=== PATIENT | male | born 1940 | race Caucasian/White ===

== ENCOUNTER → 2016-12-26 | Outpatient (REF) | payer MEDICARE, OTHER | END | disposition home or self-care (01) | LOC: M LAB REF 13:05 | PROVIDERS: ATTEND Internal Medicine Pulmonary Disease | DX: J45.40 Moderate persistent asthma, uncomplicated (principal) ==

== ENCOUNTER → 2018-06-30 | Outpatient (REF) | payer MEDICARE, OTHER ==
[2018-06-30 13:27] LABS: BASO # 0.1 10^3/uL (0.0-0.2); BASO % 1.2 % (0.0-1.0); EOS # 1.2 10^3/uL (0.0-0.50); EOS % 13.1 % (0.0-3.0); HEMATOCRIT 39.9 % (42.0-52.0); HEMOGLOBIN 12.9 g/dl (13.5-17.5); IMMATURE GRANULOCYTE % 0.4 % (0-3.0); LYMPH # 1.9 10^3/uL (1.5-4.5); LYMPH % 20.4 % (24.0-44.0); MEAN CORPUSCULAR HEMOGLOBIN 29.9 pg (27.0-33.0); MEAN CORPUSCULAR HGB CONC 32.3 g/dl (32.0-36.5); MEAN CORPUSCULAR VOLUME 92.4 fl (80.0-96.0); MONO # 0.8 10^3/uL (0.0-0.8); MONO % 7.9 % (0.0-5.0); NEUTROPHILS # 5.4 10^3/uL (1.8-7.7); PLATELET COUNT, AUTOMATED 336 10^3/uL (150-450); RED BLOOD COUNT 4.32 10^6/uL (4.30-6.10); RED CELL DISTRIBUTION WIDTH 13.8 % (11.5-14.5); WHITE BLOOD COUNT 9.5 10^3/uL (4.0-10.0)
[2018-07-03 00:07] LABS: D001-IgE D pteronyssinus <0.10 kU/L (Class 0); E001-IgE Cat Epith/Dander < 0.10 kU/L (Class 0); E005-IgE Dog Dander < 0.10 kU/L (Class 0); G002-IgE Bermuda Grass < 0.10 kU/L (Class 0); G008-IgE Kentucky Bluegrass < 0.10 kU/L (Class 0); M001-IgE Penicillium chrysogen < 0.10 kU/L (Class 0); M002 IgE Cladosporium herbaru < 0.10 kU/L (Class 0); M003 IgE Aspergillus fumigatu < 0.10 kU/L (Class 0); M006-IgE Alternaria alternata < 0.10 kU/L (Class 0); T001-IgE Maple/Box Elder < 0.10 kU/L (Class 0); T003-IgE Common Silver Birch < 0.10 kU/L (Class 0); T006-IgE Cedar, Mountain < 0.10 kU/L (Class 0); T007-IgE Oak, White < 0.10 kU/L (Class 0); T008-IgE Elm, American < 0.10 kU/L (Class 0); T015-IgE Ash, White < 0.10 kU/L (Class 0); T041-IgE Hickory, White < 0.10 kU/L (Class 0); T070-IgE White Mulberry < 0.10 kU/L (Class 0); W009-IgE Plantain, English < 0.10 kU/L (Class 0); W014-IgE Pigweed, Rough < 0.10 kU/L (Class 0); W018-IgE Sheep Sorrel < 0.10 kU/L (Class 0)
== END ==
LOC: M LAB REF 13:10
DX: J45.50 Severe persistent asthma, uncomplicated (principal)
CPT/HCPCS: 82785

== ENCOUNTER 2018-08-11 11:06 | Outpatient (CLI) | payer MEDICARE, BC, OTHER ==
[2018-08-11] MEDS: [UNRECOGNIZED DRUG - OTHER] SC (11:38)
== END 2018-08-11 12:00 | disposition home or self-care (01) ==
LOC: M INFU 11:06
DX: J45.50 Severe persistent asthma, uncomplicated (principal); Z88.8 Allergy status to other drugs, medicaments and biological substances; Z79.52 Long term (current) use of systemic steroids; Z79.899 Other long term (current) drug therapy
CPT/HCPCS: C9466

== ENCOUNTER 2018-09-08 11:33 | Outpatient (CLI) | payer MEDICARE, BC, OTHER ==
[2018-09-08] MEDS: [UNRECOGNIZED DRUG - OTHER] SC (11:57)
== END 2018-09-08 12:20 | disposition home or self-care (01) ==
LOC: M INFU 11:33
DX: J45.50 Severe persistent asthma, uncomplicated (principal); Z79.899 Other long term (current) drug therapy
CPT/HCPCS: C9466

== ENCOUNTER 2018-10-06 10:56 | Outpatient (CLI) | payer MEDICARE, BC, OTHER ==
[2018-10-06] MEDS: [UNRECOGNIZED DRUG - OTHER] SC (11:52)
== END 2018-10-06 12:15 | disposition home or self-care (01) ==
LOC: M INFU 10:56
DX: J45.50 Severe persistent asthma, uncomplicated (principal)
CPT/HCPCS: C9466

== ENCOUNTER 2018-12-01 10:58 | Outpatient (CLI) | payer MEDICARE, BC, OTHER ==
[~2018-12-01] VITALS: Ht 171.4 cm; Wt 71.7 kg
[2018-12-01 11:00] VITALS: BP 152/75
[2018-12-01 12:00] VITALS: BP 131/74
[2018-12-01] MEDS ORDERED: BENRALIZUMAB (FASENRA) 30MG/ML SYRINGE (J0517 PER 1MG) SC ONE (12:00)
== END 2018-12-01 12:00 | disposition home or self-care (01) ==
LOC: M INFU 10:58
PROVIDERS: ATTEND Internal Medicine Pulmonary Disease
DX: J45.50 Severe persistent asthma, uncomplicated (principal); Z88.8 Allergy status to other drugs, medicaments and biological substances
CPT/HCPCS: 96372; J0517

== ENCOUNTER 2019-01-26 10:50 | Outpatient (CLI) | payer MEDICARE, BC, OTHER ==
[~2019-01-26] VITALS: Ht 171.4 cm; Wt 71.8 kg
[2019-01-26] MEDS ORDERED: BENRALIZUMAB (FASENRA) 30MG/ML SYRINGE (J0517 PER 1MG) SC ONE (11:00)
[2019-01-26 11:07] VITALS: BP 164/71
[2019-01-26 11:50] VITALS: BP 136/66
== END 2019-01-26 11:50 | disposition home or self-care (01) ==
LOC: M INFU 10:50
PROVIDERS: ATTEND Internal Medicine Pulmonary Disease
DX: J45.50 Severe persistent asthma, uncomplicated (principal); Z79.899 Other long term (current) drug therapy; Z88.8 Allergy status to other drugs, medicaments and biological substances
CPT/HCPCS: 96372; J0517

== ENCOUNTER 2019-03-23 11:23 | Outpatient (CLI) | payer MEDICARE, BC, OTHER ==
[~2019-03-23] VITALS: Ht 171.4 cm; Wt 71.8 kg
[2019-03-23 11:30] VITALS: BP 147/72
[2019-03-23] MEDS ORDERED: BENRALIZUMAB (FASENRA) 30MG/ML SYRINGE (J0517 PER 1MG) SC ONE (12:00)
[2019-03-23 12:10] VITALS: BP 161/73
[2019-03-23 12:20] VITALS: BP 148/70
== END 2019-03-23 12:20 | disposition home or self-care (01) ==
LOC: M INFU 11:23
PROVIDERS: ATTEND Internal Medicine Pulmonary Disease
DX: J45.50 Severe persistent asthma, uncomplicated (principal); Z88.6 Allergy status to analgesic agent; Z88.8 Allergy status to other drugs, medicaments and biological substances; Z79.899 Other long term (current) drug therapy; Z79.4 Long term (current) use of insulin
CPT/HCPCS: 96372; J0517

== ENCOUNTER 2019-11-29 09:45 | Outpatient (CLI) | payer MEDICARE, BC, OTHER ==
[~2019-11-29] VITALS: Ht 171.4 cm; Wt 74.5 kg
[2019-11-29 09:45] VITALS: BP 154/72
[2019-11-29] MEDS ORDERED: TOUJ300I2 SC (10:08)
[2019-11-29] MEDS ORDERED: METF500T13 PO (10:08)
[2019-11-29] MEDS ORDERED: ROSU40TA4 PO (10:09)
[2019-11-29] MEDS ORDERED: OMEP40CA97 PO (10:09)
[2019-11-29] MEDS ORDERED: VITA500T40 PO (10:10)
[2019-11-29] MEDS ORDERED: FOSI10TA4 PO (10:11)
[2019-11-29] MEDS ORDERED: VITA100T59 PO (10:14)
[2019-11-29] MEDS ORDERED: PRED5TA PO (10:14)
[2019-11-29] MEDS ORDERED: MULTCAP PO (10:14)
[2019-11-29] MEDS ORDERED: IRON65TA2 PO (10:14)
[2019-11-29] MEDS ORDERED: SING4CHW9 PO (10:14)
[2019-11-29] MEDS ORDERED: SPIR12.9 INH (10:14)
[2019-11-29] MEDS ORDERED: BREO1INH3 PO (10:16)
[2019-11-29] MEDS ORDERED: CALC-190 PO (10:16)
[2019-11-29] MEDS ORDERED: BUDE180INH INH (10:16)
[2019-11-29] MEDS ORDERED: COMBAER6 INH (10:16)
[2019-11-29 10:29] VITALS: BP 153/67
[2019-11-29] MEDS ORDERED: BENRALIZUMAB (FASENRA) 30MG/ML SYRINGE (J0517 PER 1MG) SC ONE (10:30)
== END 2019-11-29 10:30 | disposition home or self-care (01) ==
LOC: M INFU 09:45
PROVIDERS: ATTEND Internal Medicine Pulmonary Disease
DX: J45.50 Severe persistent asthma, uncomplicated (principal)
CPT/HCPCS: 96372; J0517

== ENCOUNTER 2019-12-26 07:34 | Outpatient (CLI) | payer MEDICARE, BC, OTHER ==
[~2019-12-26] VITALS: Ht 172.7 cm; Wt 74.5 kg
[~2019-12-26 07:34] MED LIST: BREO1INH3 PO; BUDE180INH INH; CALC-190 PO; COMBAER6 INH; FOSI10TA4 PO; IRON65TA2 PO; METF500T13 PO; MULTCAP PO; OMEP40CA97 PO; PRED5TA PO; ROSU40TA4 PO; SING4CHW9 PO; SPIR12.9 INH; TOUJ300I2 SC; VITA100T59 PO; VITA500T40 PO
[2019-12-26 07:43] VITALS: BP 162/69
[2019-12-26] MEDS ORDERED: BENRALIZUMAB (FASENRA) 30MG/ML SYRINGE (J0517 PER 1MG) SC ONE (08:00)
[2019-12-26 08:10] VITALS: BP 152/68
== END 2019-12-26 08:10 | disposition home or self-care (01) ==
LOC: M INFU 07:34
PROVIDERS: ATTEND Internal Medicine Pulmonary Disease
DX: J45.50 Severe persistent asthma, uncomplicated (principal); Z88.6 Allergy status to analgesic agent
CPT/HCPCS: 96372; J0517

== ENCOUNTER 2020-01-23 08:22 | Outpatient (CLI) | payer MEDICARE, BC, OTHER ==
[~2020-01-23] VITALS: Ht 171.4 cm; Wt 74.5 kg
[2020-01-23 08:30] VITALS: BP 145/67
[2020-01-23] MEDS ORDERED: BENRALIZUMAB (FASENRA) 30MG/ML SYRINGE (J0517 PER 1MG) SC ONE (09:00)
[2020-01-23 09:10] VITALS: BP 149/69
[2020-01-23] MEDS ORDERED: TRAD5TAB PO (10:05)
== END 2020-01-23 09:10 | disposition home or self-care (01) ==
LOC: M INFU 08:22
PROVIDERS: ATTEND Internal Medicine Pulmonary Disease
DX: J45.50 Severe persistent asthma, uncomplicated (principal); Z88.6 Allergy status to analgesic agent; Z88.8 Allergy status to other drugs, medicaments and biological substances
CPT/HCPCS: 96372; J0517

== ENCOUNTER 2020-03-19 08:10 | Outpatient (CLI) | payer MEDICARE, BC, OTHER ==
[~2020-03-19] VITALS: Ht 170.2 cm; Wt 74.5 kg
[~2020-03-19 08:10] MED LIST changes: +TRAD5TAB PO
[2020-03-19 08:15] VITALS: BP 152/68
[2020-03-19] MEDS ORDERED: BENRALIZUMAB (FASENRA) 30MG/ML SYRINGE (J0517 PER 1MG) SC ONE (08:30)
[2020-03-19 09:00] VITALS: BP 138/63
== END 2020-03-19 09:00 | disposition home or self-care (01) ==
LOC: M INFU 08:10
PROVIDERS: ATTEND Internal Medicine Pulmonary Disease
DX: J45.50 Severe persistent asthma, uncomplicated (principal); Z79.84 Long term (current) use of oral hypoglycemic drugs; Z79.899 Other long term (current) drug therapy; Z88.6 Allergy status to analgesic agent; Z88.8 Allergy status to other drugs, medicaments and biological substances
CPT/HCPCS: 96372; J0517

== ENCOUNTER 2020-05-14 08:41 | Outpatient (CLI) | payer MEDICARE, BC, OTHER ==
[~2020-05-14] VITALS: Ht 171.4 cm; Wt 74.4 kg
[2020-05-14 08:45] VITALS: BP 141/63
[2020-05-14] MEDS ORDERED: BENRALIZUMAB (FASENRA) 30MG/ML SYRINGE (J0517 PER 1MG) SC ONE (09:00)
[2020-05-14 09:40] VITALS: BP 146/63
== END 2020-05-14 09:40 | disposition home or self-care (01) ==
LOC: M INFU 08:41
PROVIDERS: ATTEND Internal Medicine Pulmonary Disease
DX: J45.50 Severe persistent asthma, uncomplicated (principal); Z79.4 Long term (current) use of insulin; Z79.899 Other long term (current) drug therapy; Z88.8 Allergy status to other drugs, medicaments and biological substances
CPT/HCPCS: 96372; J0517

== ENCOUNTER 2020-07-10 09:21 | Outpatient (CLI) | payer MEDICARE, BC, OTHER ==
[~2020-07-10] VITALS: Ht 172.7 cm; Wt 70.3 kg
[2020-07-10] MEDS ORDERED: BENRALIZUMAB (FASENRA) 30MG/ML SYRINGE (J0517 PER 1MG) SC ONE (09:30)
[2020-07-10 10:21] VITALS: BP 132/61
== END 2020-07-10 10:05 | disposition home or self-care (01) ==
LOC: M INFU 09:21
PROVIDERS: ATTEND Internal Medicine Pulmonary Disease
DX: J45.50 Severe persistent asthma, uncomplicated (principal)
CPT/HCPCS: 96372; J0517

== ENCOUNTER 2020-09-04 09:38 | Outpatient (CLI) | payer MEDICARE, BC, OTHER ==
[~2020-09-04] VITALS: Ht 172.7 cm; Wt 70.3 kg
[2020-09-04 09:46] VITALS: BP 139/69
[2020-09-04] MEDS ORDERED: BENRALIZUMAB (FASENRA) 30MG/ML SYRINGE (J0517 PER 1MG) SC ONE (10:00)
[2020-09-04 10:01] VITALS: BP 141/73
[2020-09-04] MEDS ORDERED: FASE30IN SC (10:05)
== END 2020-09-04 10:00 | disposition home or self-care (01) ==
LOC: M INFU 09:38
PROVIDERS: ATTEND Internal Medicine Pulmonary Disease
DX: J45.50 Severe persistent asthma, uncomplicated (principal)
CPT/HCPCS: 96372; J0517

== ENCOUNTER 2020-10-30 09:39 | Outpatient (CLI) | payer MEDICARE, BC, OTHER ==
[~2020-10-30] VITALS: Ht 170.2 cm; Wt 70.3 kg
[~2020-10-30 09:39] MED LIST changes: +FASE30IN SC
[2020-10-30 09:51] VITALS: BP 145/74
[2020-10-30] MEDS ORDERED: BENRALIZUMAB (FASENRA) 30MG/ML SYRINGE (J0517 PER 1MG) SC ONE (10:00)
== END 2020-10-30 10:00 | disposition home or self-care (01) ==
LOC: M INFU 09:39
PROVIDERS: ATTEND Internal Medicine Pulmonary Disease
DX: J45.50 Severe persistent asthma, uncomplicated (principal); Z88.8 Allergy status to other drugs, medicaments and biological substances
CPT/HCPCS: 96372; J0517

== ENCOUNTER 2020-12-25 09:28 | Outpatient (CLI) | payer MEDICARE, BC, OTHER ==
[~2020-12-25] VITALS: Ht 170.2 cm; Wt 70.3 kg
[2020-12-25 09:43] VITALS: BP 166/74
[2020-12-25] MEDS ORDERED: BENRALIZUMAB (FASENRA) 30MG/ML SYRINGE (J0517 PER 1MG) SC ONE (10:00)
== END 2020-12-25 09:55 | disposition home or self-care (01) ==
LOC: M INFU 09:28
PROVIDERS: ATTEND Internal Medicine Pulmonary Disease
DX: J45.50 Severe persistent asthma, uncomplicated (principal)
CPT/HCPCS: 96372; J0517

== ENCOUNTER 2021-02-19 09:43 | Outpatient (CLI) | payer MEDICARE, BC, OTHER ==
[~2021-02-19] VITALS: Ht 172.7 cm; Wt 72.7 kg
[2021-02-19] MEDS ORDERED: BENRALIZUMAB 30 MG/ML SC ONE (10:00)
[2021-02-19 10:16] VITALS: BP 127/69
== END 2021-02-19 10:15 | disposition home or self-care (01) ==
LOC: M INFU 09:43
PROVIDERS: ATTEND Internal Medicine Pulmonary Disease
DX: J45.30 Mild persistent asthma, uncomplicated (principal); Z88.8 Allergy status to other drugs, medicaments and biological substances; Z88.6 Allergy status to analgesic agent
CPT/HCPCS: 96372; J0517

== ENCOUNTER 2021-04-16 09:47 | Outpatient (CLI) | payer MEDICARE, BC, OTHER ==
[~2021-04-16] VITALS: Ht 171.4 cm; Wt 72.1 kg
[2021-04-16] MEDS ORDERED: BENRALIZUMAB 30 MG/ML SC ONE (10:00)
[2021-04-16 10:04] VITALS: BP 160/70
== END 2021-04-16 10:05 | disposition home or self-care (01) ==
LOC: M INFU 09:47
PROVIDERS: ATTEND Internal Medicine Pulmonary Disease
DX: J45.30 Mild persistent asthma, uncomplicated (principal); Z88.8 Allergy status to other drugs, medicaments and biological substances
CPT/HCPCS: 96372; J0517

== ENCOUNTER 2021-06-11 09:31 | Outpatient (CLI) | payer MEDICARE, BC, OTHER ==
[~2021-06-11] VITALS: Ht 170.2 cm; Wt 79.5 kg
[~2021-06-11 09:31] MED LIST changes: +BENRALIZUMAB 30 MG/ML SC ONE; +OMEP40CA4 PO; -OMEP40CA97 PO
[2021-06-11 09:48] VITALS: BP 182/78
[2021-06-11 09:50] VITALS: BP 156/78
== END 2021-06-11 09:50 | disposition home or self-care (01) ==
LOC: M INFU 09:31
PROVIDERS: ATTEND Internal Medicine Pulmonary Disease
DX: J45.30 Mild persistent asthma, uncomplicated (principal); Z88.6 Allergy status to analgesic agent
CPT/HCPCS: 96372; J0517

== ENCOUNTER 2021-08-09 11:24 | Outpatient (CLI) | payer MEDICARE, BC, OTHER ==
[~2021-08-09] VITALS: Ht 170.2 cm; Wt 79.5 kg
[~2021-08-09 11:24] MED LIST changes: -BENRALIZUMAB 30 MG/ML SC ONE
[2021-08-09 11:30] VITALS: BP 158/76
[2021-08-09] MEDS ORDERED: BENRALIZUMAB 30 MG/ML SC ONE ×2 (11:30)
== END 2021-08-09 11:45 | disposition home or self-care (01) ==
LOC: M INFU 11:24
PROVIDERS: ATTEND Internal Medicine Pulmonary Disease
DX: J45.50 Severe persistent asthma, uncomplicated (principal); Z88.6 Allergy status to analgesic agent; Z88.8 Allergy status to other drugs, medicaments and biological substances
CPT/HCPCS: 96372; J0517

== ENCOUNTER 2021-10-08 09:45 | Outpatient (CLI) | payer MEDICARE, BC, OTHER ==
[~2021-10-08] VITALS: Ht 170.2 cm; Wt 79.5 kg
[2021-10-08 09:55] VITALS: BP 174/72
[2021-10-08] MEDS ORDERED: BENRALIZUMAB 30 MG/ML SC ONE (10:00)
== END 2021-10-08 10:05 | disposition home or self-care (01) ==
LOC: M INFU 09:45
PROVIDERS: ATTEND Internal Medicine Pulmonary Disease
DX: J45.50 Severe persistent asthma, uncomplicated (principal); Z88.6 Allergy status to analgesic agent; Z88.8 Allergy status to other drugs, medicaments and biological substances
CPT/HCPCS: 96372; J0517

== ENCOUNTER 2021-12-03 10:02 | Outpatient (CLI) | payer MEDICARE, BC, OTHER ==
[~2021-12-03] VITALS: Ht 170.2 cm; Wt 79.5 kg
[2021-12-03 10:00] VITALS: BP 167/79
[~2021-12-03 10:02] MED LIST changes: +BENRALIZUMAB 30 MG/ML SC ONE; -FOSI10TA4 PO; +FOSI10TA44 PO
== END 2021-12-03 10:15 | disposition home or self-care (01) ==
LOC: M INFU 10:02
PROVIDERS: ATTEND Internal Medicine Pulmonary Disease
DX: J45.50 Severe persistent asthma, uncomplicated (principal); Z88.6 Allergy status to analgesic agent; Z88.8 Allergy status to other drugs, medicaments and biological substances
CPT/HCPCS: 96372; J0517

== ENCOUNTER 2022-01-28 09:43 | Outpatient (CLI) | payer MEDICARE, BC, OTHER ==
[~2022-01-28] VITALS: Ht 172.7 cm; Wt 70.0 kg
[~2022-01-28 09:43] MED LIST changes: -BENRALIZUMAB 30 MG/ML SC ONE
[2022-01-28 10:00] VITALS: BP 173/75
[2022-01-28] MEDS ORDERED: BENRALIZUMAB 30 MG/ML SC ONE (10:00)
== END 2022-01-28 10:15 | disposition home or self-care (01) ==
LOC: M INFU 09:43
PROVIDERS: ATTEND Internal Medicine Pulmonary Disease
DX: J45.50 Severe persistent asthma, uncomplicated (principal); Z88.6 Allergy status to analgesic agent; Z88.8 Allergy status to other drugs, medicaments and biological substances
CPT/HCPCS: 96372; J0517

== ENCOUNTER 2022-03-25 10:01 | Outpatient (CLI) | payer MEDICARE, BC, OTHER ==
[~2022-03-25 10:01] MED LIST changes: +BENRALIZUMAB 30 MG/ML SC ONE
[2022-03-25 10:15] VITALS: BP 159/69
== END 2022-03-25 10:17 | disposition home or self-care (01) ==
LOC: M INFU 10:01
PROVIDERS: ATTEND Internal Medicine Pulmonary Disease
DX: J47.9 Bronchiectasis, uncomplicated (principal); J45.40 Moderate persistent asthma, uncomplicated; Z88.6 Allergy status to analgesic agent; Z88.8 Allergy status to other drugs, medicaments and biological substances
CPT/HCPCS: 96372; J0517

== ENCOUNTER 2022-05-21 09:26 | Outpatient (CLI) | payer MEDICARE, BC, OTHER ==
[~2022-05-21] VITALS: Ht 170.2 cm; Wt 72.7 kg
[~2022-05-21 09:26] MED LIST changes: -BENRALIZUMAB 30 MG/ML SC ONE
[2022-05-21 09:30] VITALS: BP 181/77
[2022-05-21 10:00] VITALS: BP 183/82
[2022-05-21] MEDS ORDERED: BENRALIZUMAB 30 MG/ML SC ONE (10:00)
== END 2022-05-21 10:00 ==
LOC: M INFU 09:26
PROVIDERS: ATTEND Internal Medicine Pulmonary Disease
DX: J45.50 Severe persistent asthma, uncomplicated (principal); Z88.8 Allergy status to other drugs, medicaments and biological substances
CPT/HCPCS: 96372; J0517

== ENCOUNTER 2022-07-15 09:50 | Outpatient (CLI) | payer MEDICARE, BC, OTHER ==
[~2022-07-15] VITALS: Ht 172.7 cm; Wt 73.0 kg
[2022-07-15 09:55] VITALS: BP 150/67
[2022-07-15] MEDS ORDERED: BENRALIZUMAB 30 MG/ML SC ONE (10:00)
== END 2022-07-15 10:20 | disposition home or self-care (01) ==
LOC: M INFU 09:50
PROVIDERS: ATTEND Internal Medicine Pulmonary Disease
DX: J45.40 Moderate persistent asthma, uncomplicated (principal); J47.9 Bronchiectasis, uncomplicated; Z88.8 Allergy status to other drugs, medicaments and biological substances
CPT/HCPCS: 96372; J0517

== ENCOUNTER 2022-09-09 10:00 | Outpatient (CLI) | payer MEDICARE, BC, OTHER ==
[~2022-09-09 10:00] MED LIST changes: +BENRALIZUMAB 30 MG/ML SC ONE
== END 2022-09-09 10:30 | disposition home or self-care (01) ==
LOC: M INFU 10:00
PROVIDERS: ATTEND Internal Medicine Pulmonary Disease
DX: J45.40 Moderate persistent asthma, uncomplicated (principal); Z88.8 Allergy status to other drugs, medicaments and biological substances
CPT/HCPCS: 96372; J0517

== ENCOUNTER 2022-11-04 09:40 | Outpatient (CLI) | payer MEDICARE, BC, OTHER ==
[~2022-11-04] VITALS: Ht 172.7 cm; Wt 73.0 kg
[2022-11-04 09:40] VITALS: BP 123/75
[~2022-11-04 09:40] MED LIST changes: -BENRALIZUMAB 30 MG/ML SC ONE
[2022-11-04] MEDS ORDERED: BENRALIZUMAB 30 MG/ML SC ONE (10:00)
== END 2022-11-04 09:50 | disposition home or self-care (01) ==
LOC: M INFU 09:40
PROVIDERS: ATTEND Internal Medicine Pulmonary Disease
DX: J45.40 Moderate persistent asthma, uncomplicated (principal); Z88.8 Allergy status to other drugs, medicaments and biological substances
CPT/HCPCS: 96372; J0517

== ENCOUNTER 2022-12-30 09:59 | Outpatient (CLI) | payer MEDICARE, BC, OTHER ==
[~2022-12-30] VITALS: Ht 172.7 cm; Wt 73.2 kg
[2022-12-30] MEDS ORDERED: BENRALIZUMAB 30 MG/ML SC ONE (10:00)
[2022-12-30 10:05] VITALS: BP 166/78
[2022-12-30 10:40] VITALS: BP 159/71
== END 2022-12-30 10:40 | disposition home or self-care (01) ==
LOC: M INFU 09:59
PROVIDERS: ATTEND Internal Medicine Pulmonary Disease
DX: J45.40 Moderate persistent asthma, uncomplicated (principal); Z88.8 Allergy status to other drugs, medicaments and biological substances
CPT/HCPCS: 96372; J0517

== ENCOUNTER 2023-02-24 09:45 | Outpatient (CLI) | payer MEDICARE, BC, OTHER ==
[~2023-02-24] VITALS: Ht 172.7 cm; Wt 71.2 kg
[~2023-02-24 09:45] MED LIST changes: +MONT4TAB2 PO; -SING4CHW9 PO
[2023-02-24 09:51] VITALS: BP 164/73
[2023-02-24] MEDS ORDERED: BENRALIZUMAB 30 MG/ML SC ONE (10:00)
== END 2023-02-24 10:00 | disposition home or self-care (01) ==
LOC: M INFU 09:45
PROVIDERS: ATTEND Internal Medicine Pulmonary Disease
DX: J45.40 Moderate persistent asthma, uncomplicated (principal); Z88.8 Allergy status to other drugs, medicaments and biological substances
CPT/HCPCS: 96372; J0517

== ENCOUNTER 2023-04-21 10:05 | Outpatient (CLI) | payer MEDICARE, BC, OTHER ==
[~2023-04-21] VITALS: Ht 171.4 cm; Wt 71.7 kg
[~2023-04-21 10:05] MED LIST changes: +BENRALIZUMAB 30 MG/ML SC ONE
[2023-04-21 10:18] VITALS: BP 168/67; O2SAT 97
== END 2023-04-21 10:20 | disposition home or self-care (01) ==
LOC: M INFU 10:05
PROVIDERS: ATTEND Internal Medicine Pulmonary Disease
DX: J45.40 Moderate persistent asthma, uncomplicated (principal); Z88.8 Allergy status to other drugs, medicaments and biological substances
CPT/HCPCS: 96372; J0517

== ENCOUNTER 2023-06-18 11:59 | Outpatient (CLI) | payer MEDICARE, BC, OTHER ==
[~2023-06-18 11:59] MED LIST changes: -BENRALIZUMAB 30 MG/ML SC ONE
[2023-06-18 12:21] VITALS: BP 143/69; O2SAT 99
[2023-06-18] MEDS ORDERED: BENRALIZUMAB 30 MG/ML SC ONE (13:00)
== END 2023-06-18 12:34 | disposition home or self-care (01) ==
LOC: M INFU 11:59
PROVIDERS: ATTEND Internal Medicine Pulmonary Disease
DX: J45.50 Severe persistent asthma, uncomplicated (principal); Z88.8 Allergy status to other drugs, medicaments and biological substances
CPT/HCPCS: 96372; J0517

== ENCOUNTER 2023-10-06 09:45 | Outpatient (CLI) | payer MEDICARE, BC, OTHER ==
[~2023-10-06] VITALS: Ht 172.7 cm; Wt 70.0 kg
[2023-10-06 09:51] VITALS: BP 164/90; O2SAT 98
[2023-10-06] MEDS ORDERED: BENRALIZUMAB 30 MG/ML SC ONE (10:00)
== END 2023-10-06 10:00 ==
LOC: M INFU 09:45
PROVIDERS: ATTEND Internal Medicine Pulmonary Disease
DX: J45.50 Severe persistent asthma, uncomplicated (principal); Z88.8 Allergy status to other drugs, medicaments and biological substances
CPT/HCPCS: 96372; J0517

== ENCOUNTER 2023-12-01 09:43 | Outpatient (CLI) | payer MEDICARE, BC, OTHER ==
[2023-12-01] MEDS ORDERED: BENRALIZUMAB 30 MG/ML SC ONE (10:00)
[2023-12-01 10:03] VITALS: BP 152/67; O2SAT 98
== END 2023-12-01 10:13 | disposition home or self-care (01) ==
LOC: M INFU 09:43
PROVIDERS: ATTEND Internal Medicine Pulmonary Disease
DX: J45.50 Severe persistent asthma, uncomplicated (principal); Z88.8 Allergy status to other drugs, medicaments and biological substances
CPT/HCPCS: 96372; J0517

== ENCOUNTER 2024-01-26 09:45 | Outpatient (CLI) | payer MEDICARE, BC ==
[~2024-01-26] VITALS: Ht 172.7 cm; Wt 71.3 kg
[2024-01-26 09:45] VITALS: BP 146/70; O2SAT 96
[2024-01-26] MEDS: BENRALIZUMAB 30 MG/ML SC ONE (10:04)
== END 2024-01-26 10:05 | disposition home or self-care (01) ==
LOC: M INFU 09:45
PROVIDERS: ATTEND Internal Medicine Pulmonary Disease
DX: J45.50 Severe persistent asthma, uncomplicated (principal); Z88.8 Allergy status to other drugs, medicaments and biological substances
CPT/HCPCS: 96372; J0517

== ENCOUNTER 2024-03-22 10:10 | Outpatient (CLI) | payer MEDICARE, BC ==
[~2024-03-22] VITALS: Ht 170.2 cm; Wt 72.7 kg
[~2024-03-22 10:10] MED LIST changes: -ROSU40TA4 PO; +ROSU40TA63 PO
[2024-03-22] MEDS: BENRALIZUMAB 30 MG/ML SC ONE (10:16)
[2024-03-22 10:27] VITALS: BP 134/60; O2SAT 94
== END 2024-03-22 10:20 | disposition home or self-care (01) ==
LOC: M INFU 10:10
PROVIDERS: ATTEND Internal Medicine Pulmonary Disease
DX: J45.50 Severe persistent asthma, uncomplicated (principal); Z88.8 Allergy status to other drugs, medicaments and biological substances
CPT/HCPCS: 96372; J0517

== ENCOUNTER 2024-05-17 09:48 | Outpatient (CLI) | payer MEDICARE, BC ==
[~2024-05-17] VITALS: Ht 172.7 cm; Wt 72.7 kg
[2024-05-17] MEDS: BENRALIZUMAB 30 MG/ML SC ONE (10:17)
[2024-05-17 10:20] VITALS: BP 169/74; O2SAT 95
== END 2024-05-17 10:30 ==
LOC: M INFU 09:48
PROVIDERS: ATTEND Internal Medicine Pulmonary Disease
DX: J45.50 Severe persistent asthma, uncomplicated (principal); Z88.8 Allergy status to other drugs, medicaments and biological substances
CPT/HCPCS: 96372; J0517

== ENCOUNTER 2024-07-12 10:25 | Outpatient (CLI) | payer MEDICARE, BC ==
[2024-07-12 10:25] VITALS: BP 154/69; O2SAT 98
[2024-07-12] MEDS: BENRALIZUMAB 30 MG/ML SC ONE (10:35)
== END 2024-07-12 10:40 ==
LOC: M INFU 10:25
PROVIDERS: ATTEND Internal Medicine Pulmonary Disease
DX: J45.50 Severe persistent asthma, uncomplicated (principal); Z88.8 Allergy status to other drugs, medicaments and biological substances
CPT/HCPCS: 96372; J0517

== ENCOUNTER 2024-09-06 10:30 | Outpatient (CLI) | payer MEDICARE, BC ==
[~2024-09-06] VITALS: Ht 172.7 cm; Wt 73.2 kg
[2024-09-06 10:25] VITALS: BP 131/67; O2SAT 98
[~2024-09-06 10:30] MED LIST changes: +BENRALIZUMAB 30 MG/ML SC ONE; -ROSU40TA63 PO; +ROSU40TA81 PO
[2024-09-06] MEDS: BENRALIZUMAB 30 MG/ML SC ONE (10:41)
== END 2024-09-06 10:43 ==
LOC: M INFU 10:30
PROVIDERS: ATTEND Internal Medicine Pulmonary Disease
DX: J45.50 Severe persistent asthma, uncomplicated (principal); Z88.8 Allergy status to other drugs, medicaments and biological substances
CPT/HCPCS: 94010; 96372; G0463; J0517

== ENCOUNTER 2024-11-01 10:23 | Outpatient (CLI) | payer MEDICARE, BC ==
[~2024-11-01 10:23] MED LIST changes: -BENRALIZUMAB 30 MG/ML SC ONE; +BUDE180A2 INH; -BUDE180INH INH
[2024-11-01 10:35] VITALS: BP 145/81; O2SAT 97
[2024-11-01] MEDS: BENRALIZUMAB 30 MG/ML SC ONE (10:37)
== END 2024-11-01 10:44 ==
LOC: M INFU 10:23
PROVIDERS: ATTEND Internal Medicine Pulmonary Disease
DX: J45.50 Severe persistent asthma, uncomplicated (principal)
CPT/HCPCS: 96372; J0517

== ENCOUNTER 2024-12-27 09:56 | Outpatient (CLI) | payer MEDICARE, BC ==
[2024-12-27 10:15] VITALS: BP 153/78; O2SAT 97
[2024-12-27] MEDS: BENRALIZUMAB 30 MG/ML SC ONE (10:15)
== END 2024-12-27 10:25 ==
LOC: M INFU 09:56
PROVIDERS: ATTEND Internal Medicine Pulmonary Disease
DX: J45.50 Severe persistent asthma, uncomplicated (principal); Z88.8 Allergy status to other drugs, medicaments and biological substances
CPT/HCPCS: 96372; J0571

== ENCOUNTER 2025-02-21 09:45 | Outpatient (CLI) | payer MEDICARE, BC ==
[2025-02-21 09:45] VITALS: BP 161/72; O2SAT 97
[2025-02-21] MEDS: BENRALIZUMAB 30 MG/ML SC ONE (09:49)
== END 2025-02-21 09:53 ==
LOC: M INFU 09:45
PROVIDERS: ATTEND Internal Medicine Pulmonary Disease
DX: J45.50 Severe persistent asthma, uncomplicated (principal); Z88.6 Allergy status to analgesic agent; Z88.8 Allergy status to other drugs, medicaments and biological substances
CPT/HCPCS: 96372; J0517

== ENCOUNTER 2025-06-13 09:22 | Outpatient (CLI) | payer MEDICARE, BC ==
[~2025-06-13] VITALS: Ht 172.7 cm; Wt 72.8 kg
[2025-06-13 09:35] VITALS: BP 154/78; O2SAT 97
[2025-06-13] MEDS: BENRALIZUMAB 30 MG/ML SYRINGE SC ONE (09:39)
== END 2025-06-13 09:45 ==
LOC: M INFU 09:22
PROVIDERS: ATTEND Internal Medicine Pulmonary Disease
DX: J45.50 Severe persistent asthma, uncomplicated (principal); Z88.8 Allergy status to other drugs, medicaments and biological substances
CPT/HCPCS: 96372; J0517

== ENCOUNTER 2025-10-03 09:56 | Outpatient (CLI) | payer MEDICARE, BC ==
[2025-10-03 10:15] VITALS: BP 150/80; O2SAT 99
[2025-10-03] MEDS: BENRALIZUMAB 30 MG/ML SYRINGE SC ONE (10:18)
== END 2025-10-03 10:25 | disposition home or self-care (01) ==
LOC: M INFU 09:56
PROVIDERS: ATTEND Internal Medicine Pulmonary Disease
DX: J45.50 Severe persistent asthma, uncomplicated (principal); Z88.6 Allergy status to analgesic agent; Z88.8 Allergy status to other drugs, medicaments and biological substances
CPT/HCPCS: 96372; J0517